=== PATIENT | female | born 1965 | race Caucasian/White ===

== ENCOUNTER 2018-05-02 14:02 | Outpatient (CLI) | payer MEDICARE ==
--- NOTE | 2018-05-02 14:19 | RAD ---
TWO VIEWS CHEST: HISTORY: Dyspnea. FINDINGS: PA and lateral views of the chest are obtained. There is a dual-lead intracardiac pacing device. There is a healed fracture in the right 6th rib. The lungs are well aerated. No evidence of active intrathoracic disease is seen. No evidence of eff usions, pneumonia, or pneumothorax is seen. IMPRESSION: Old healed right 6th rib fracture; otherwise, unremarkable 2 views chest. POS: [facility]
== END 2018-05-02 14:03 | disposition home or self-care (01) ==
LOC: RAD 14:02
PROVIDERS: ATTEND Internal Medicine Pulmonary Disease
DX: R06.00 Dyspnea, unspecified (principal); Z87.81 Personal history of (healed) traumatic fracture
CPT/HCPCS: 71046